=== PATIENT | female | born 1985 | race Asian ===

== ENCOUNTER 2020-04-20 08:30 | Inpatient (IN) | payer OTHER, SELFPAY ==
[~2020-04-20] VITALS: Ht 160 cm; Wt 69.4 kg
[~2020-04-20 08:30] MED LIST: CEFAZOLIN 1 GM IVPB PREMIX 50 ML IV ONE; CEFAZOLIN 1 GM IVPB PREMIX 50 ML IV SCH
[2020-04-20] MEDS ORDERED: CEFAZOLIN 2 GM IVPB PREMIX 50 ML IV ONE (08:45)
[2020-04-20] MEDS ORDERED: LR 1,000 ML IV ONE (08:45)
[2020-04-20 09:16] LABS: BASOPHILS % (AUTO) 0.4 % (0.0-2.0); EOSINOPHILS # (AUTO) 0.1 K/uL (0.0-0.4); EOSINOPHILS % (AUTO) 0.6 % (0.0-4.0); HEMATOCRIT 37.2 % (36-48); HEMOGLOBIN 12.7 g/dL (12.0-16.0); LYMPHOCYTES # (AUTO) 1.8 K/uL (1.0-5.5); MEAN CORPUSCULAR HEMOGLOBIN 32 pg (27-31); MEAN CORPUSCULAR HGB CONC 34 % (32-36); MEAN CORPUSCULAR VOLUME 94 fL (79.0-98.0); MONOCYTES # (AUTO) 0.7 K/uL (0.0-1.0); MONOCYTES % (AUTO) 7.3 % (1.7-9.3); NEUTROPHILS # (AUTO) 6.5 K/uL (1.8-7.7); NEUTROPHILS % (AUTO) 71.7 % (40.0-70.0); PLATELET COUNT (AUTO) 156 K/uL (130-430); RED BLOOD CELL COUNT(AUTO) 3.97 MIL/uL (4.2-6.2); RED CELL DISTRIBUTION WIDTH 13.5 % (9.0-15.0)
[2020-04-20 09:25] LABS: BILIRUBIN,URINE NEGATIVE (NEGATIVE); BLOOD, URINE NEGATIVE (NEGATIVE); CLARITY/URINE CLEAR (CLEAR); COLOR,URINE YELLOW (YELLOW); GLUCOSE,URINE NEGATIVE (NEGATIVE); KETONES,URINE NEGATIVE (NEGATIVE); LEUKOCYTE ESTERASE ,URINE NEGATIVE (NEGATIVE); NITRITE, URINE NEGATIVE (NEGATIVE); PROTEIN URINE NEGATIVE (NEGATIVE); UROBILINOGEN,URINE 0.2 (0.2-1.0)
[2020-04-20 12:01] VITALS: BP_SYST 112
[2020-04-20 14:58] VITALS: BP_SYST 104
[2020-04-20] MEDS ORDERED: DIPHENHYDRAMINE INJ 50 MG/ML VIAL IM PRN (15:00)
[2020-04-20] MEDS ORDERED: ONDANSETRON HCL 4 MG/2 ML VIAL IVP PRN (15:00)
[2020-04-20] MEDS ORDERED: MORPHINE SULFATE 10MG/10ML PF AMP SP SCH (15:00)
[2020-04-20] MEDS ORDERED: NALOXONE HCL 0.4 MG/ML AMP (NARCAN) IVP PRN (15:00)
[2020-04-20] MEDS ORDERED: KETOROLAC TROMETHAMINE 60 MG/2 ML VIAL IM PRN (15:00)
[2020-04-20] MEDS ORDERED: LR 500 ML IV ONE ×2 (15:09→15:15)
[2020-04-20] MEDS: ePHEDrine sulfate 50 MG/ML VIAL IVP PRN ×2 (15:50→15:55)
[2020-04-20] MEDS ORDERED: BISACODYL 10 MG/SUPPOSITORY RC PRN (16:00)
[2020-04-20] MEDS ORDERED: OXYTOCIN/0.9 % SODIUM CHLORIDE 1,000 ML IV ONE (16:00)
[2020-04-20] MEDS ORDERED: LR 1,000 ML IV SCH (16:00)
[2020-04-20] MEDS ORDERED: LANOLIN 7 GM OINT. TP PRN (16:00)
[2020-04-20] MEDS ORDERED: ANUSOL 1 EA SUPP.RECT (PREPARATION H) RC PRN (16:00)
[2020-04-20] MEDS ORDERED: SENNOSIDES/DOCUSATE SODIUM 1 TAB TABLET(SENOKOT-S) PO PRN (16:00)
[2020-04-20] MEDS ORDERED: ePHEDrine sulfate 50 MG/ML VIAL ONE (16:10)
[2020-04-20] MEDS ORDERED: TEMAZEPAM 15 MG CAPSULE PO PRN (21:00)
[2020-04-21 06:43] LABS: BASOPHILS % (AUTO) 0.1 % (0.0-2.0); EOSINOPHILS % (AUTO) 0.1 % (0.0-4.0); HEMATOCRIT 31.5 % (36-48); HEMOGLOBIN 10.9 g/dL (12.0-16.0); LYMPHOCYTES # (AUTO) 1.1 K/uL (1.0-5.5); LYMPHOCYTES % (AUTO) 10.7 % (20.5-51.5); MEAN CORPUSCULAR HEMOGLOBIN 32 pg (27-31); MEAN CORPUSCULAR HGB CONC 35 % (32-36); MEAN CORPUSCULAR VOLUME 93 fL (79.0-98.0); MONOCYTES # (AUTO) 0.9 K/uL (0.0-1.0); NEUTROPHILS # (AUTO) 8.1 K/uL (1.8-7.7); NEUTROPHILS % (AUTO) 80.1 % (40.0-70.0); PLATELET COUNT (AUTO) 144 K/uL (130-430); RED BLOOD CELL COUNT(AUTO) 3.37 MIL/uL (4.2-6.2); RED CELL DISTRIBUTION WIDTH 13.2 % (9.0-15.0); WHITE BLOOD COUNT (AUTO) 10.2 K/uL (4.8-10.8)
[2020-04-21] MEDS ORDERED: CEFAZOLIN 1 GM IVPB PREMIX 50 ML IV ONE (12:00)
[2020-04-21] MEDS: IBUPROFEN 600 MG TABLET PO SCH ×3 (12:29→23:45)
[2020-04-21] MEDS: SIMETHICONE 80 MG TAB.CHEW PO PRN ×2 (12:29→18:36)
[2020-04-21] MEDS: DOCUSATE SODIUM 100 MG CAPSULE PO PRN ×2 (18:36→21:22)
[2020-04-22] MEDS: IBUPROFEN 600 MG TABLET PO SCH ×2 (05:16→12:12)
[2020-04-22] MEDS ORDERED: MORPHINE SULFATE 10MG/10ML PF AMP EP ONE (14:00)
[2020-04-22] MEDS ORDERED: BUPIVACAINE /DEX PF 0.75% SPINAL 2 ML AMP INJ ONE (14:00)
[2020-04-22] MEDS ORDERED: GLYCOPYRROLATE 0.2 MG/ML VIAL IJ ONE (14:00)
[2020-04-22] MEDS ORDERED: LR 1,000 ML IV.SOLN IV ONE (14:00)
[2020-04-22] MEDS ORDERED: PHENYLEPHRINE HCL 10 MG/ML VIAL (NEOSYNEPHRINE) IV ONE (14:00)
[2020-04-22] MEDS ORDERED: OXYTOCIN 10 UNIT/ML VIAL IV ONE (14:00)
[2020-04-22] MEDS ORDERED: NS IRRIG SOLN 1000 ML IR ONE (14:00)
[2020-04-22] MEDS ORDERED: METOCLOPRAMIDE HCL 10 MG/2 ML VIAL IVP ONE (14:00)
[2020-04-22] MEDS ORDERED: ONDANSETRON HCL 4 MG/2 ML VIAL IVP ONE (14:00)
== END 2020-04-22 15:35 | disposition home or self-care (01) | DRG 540 ==
LOC: SPU 08:30
PROVIDERS: ADMIT Obstetrics & Gynecology; ATTEND Obstetrics & Gynecology
PROC: 10D00Z1 Extraction of Products of Conception, Low, Open Approach (ICD-10-PCS; principal; 2020-04-20 13:10)
DX: O32.1XX0 Maternal care for breech presentation, not applicable or unspecified (principal); Z20.828 Contact with and (suspected) exposure to other viral communicable diseases; Z37.0 Single live birth; Z3A.39 39 weeks gestation of pregnancy
CPT/HCPCS: 36415; 81003; 85025; 86886; 86900; 86901; 94760; J0690; J2274; J2370; J2405; J2590; J2765; J3490; J7120; U0003